=== PATIENT | female | born 1985 | race Caucasian/White ===

== ENCOUNTER 2020-11-23 20:37 | Emergency (ER) | payer OTHER, MEDICAID ==
[~2020-11-23] VITALS: Ht 165.1 cm; Wt 131.5 kg
[2020-11-23] MEDS ORDERED: PROAIR HFA8.5 GM INH (20:49)
[2020-11-23] MEDS ORDERED: LABETALOL HCL100 MG PO (20:49)
[2020-11-23 21:17] LABS: ABSOLUTE EOSINOPHILS 0.2 thou/uL (0.0-0.7); ABSOLUTE LYMPHOCYTES 2.8 thou/uL (0.8-5.3); ABSOLUTE MONOCYTES 0.7 thou/uL (0.0-1.2); ABSOLUTE NEUTROPHILS 4.8 thou/uL (1.6-8.1); BASOPHILS 0.6 %; EOSINOPHILS 2.2 %; HEMATOCRIT 37.1 % (37.0-47.0); HEMOGLOBIN 12.8 gm/dL (12.0-15.0); LYMPHOCYTES 32.5 %; MCH 30.1 pg (26.0-34.0); MCHC 34.5 g/dL (28.0-37.0); MCV 87.2 fL (80.0-100.0); MONOCYTES 8.5 %; MPV 7.6 fl. (7.2-11.1); NUCLEATED RBCS 0 /100WBC; PLATELET COUNT* 238 thou/uL (150-400); POLYS 56.2 %; RBC 4.25 mil/uL (4.20-5.00); WBC 8.5 thou/uL (4.0-11.0)
[2020-11-23 21:38] LABS: CALCIUM 8.8 mg/dL (8.5-10.1); CREATININE 0.6 mg/dL (0.6-1.3)
[2020-11-23 21:54] LABS: ALBUMIN 3.4 g/dL (3.4-5.0); TOTAL BILIRUBIN 0.3 mg/dL (<0.1-1.0); TOTAL PROTEIN 7.2 g/dL (6.4-8.2)
[2020-11-23 22:48] VITALS: BP 154/87
== END 2020-11-23 22:48 | disposition home or self-care (01) ==
LOC: M.ERS 20:37
PROVIDERS: Physician Assistant
DX: R06.00 Dyspnea, unspecified (principal); M79.652 Pain in left thigh; I11.0 Hypertensive heart disease with heart failure; I50.9 Heart failure, unspecified; J45.909 Unspecified asthma, uncomplicated; Z88.8 Allergy status to other drugs, medicaments and biological substances

== ENCOUNTER 2021-06-10 14:10 | Emergency (ER) | payer OTHER, MEDICAID ==
[~2021-06-10] VITALS: Ht 167.6 cm; Wt 136.1 kg
[~2021-06-10 14:10] MED LIST: LABETALOL HCL100 MG PO; PROAIR HFA8.5 GM INH
[2021-06-10 16:01] VITALS: BP 124/92
== END 2021-06-10 16:02 | disposition home or self-care (01) ==
LOC: M.ERS 14:10
DX: R05.9 Cough, unspecified (principal); Z20.822 Contact with and (suspected) exposure to COVID-19; J45.909 Unspecified asthma, uncomplicated; I11.0 Hypertensive heart disease with heart failure; I50.9 Heart failure, unspecified; Z79.899 Other long term (current) drug therapy; Z88.6 Allergy status to analgesic agent